=== PATIENT | female | born 1975 | race Caucasian/White ===

== ENCOUNTER 2016-11-06 09:53 | Emergency (ER) | payer OTHER ==
[~2016-11-06] VITALS: Ht 162.6 cm; Wt 70.9 kg
[~2016-11-06 09:53] MED LIST: ACET-1256 PO
[2016-11-06 10:03] VITALS: TEMP 36.5; Ht 162.6 cm; Wt 70.9 kg
[2016-11-06] MEDS ORDERED: OXYCODONE HCL IR 5 MG TAB (IMMEDIATE RELEASE) PO STA (11:15)
--- NOTE | 2016-11-06 11:20 | EMERGENCY ROOM VISIT NOTE ---
ED Visit Note First contact with patient: 10:34 CHIEF COMPLAINT: Low back pain HISTORY OF PRESENT ILLNESS: This 41-year-old female patient presents to the emergency department ambulatory complaining of pain in the low back which began 5 days ago. The pain was gradual in onset, is now constant and worse with movement. The patient notes the pain as sharp and a 6/10. The patient has taken Advil and muscle relaxer with no relief of the pain. The patient denies any bowel or bladder difficulties. There has been no leg numbness or weakness, and no change in sensation. She does report pain into the lateral aspect of the right leg that does not go past the knee. No nausea or vomiting or abdominal pain. No chest pain or shortness of breath. The patient has not had prior back injuries. REVIEW OF SYSTEMS: No dysuria or increased urinary frequency. A 10 system review of systems was completed and pertinent positives and negatives are in the HPI. ALLERGIES: Penicillin MEDICATIONS: None PMH: None SOCIAL HISTORY: The patient is a smoker. PHYSICAL EXAM: VITALS: Vitals are noted on the nurse's note and reviewed by myself. No abnormalities noted. GENERAL: This a 41-year-old female, in no acute distress, nondiaphoretic, well- developed well-nourished. SKIN: The skin was without rashes, erythema, edema, or bruising. Capillary refill less than 2 seconds. NECK: Supple without nuchal rigidity. No cervical spine tenderness. No paraspinous muscle tenderness. HEART: Regular rate and rhythm without murmurs gallops or rubs. LUNGS: Clear to auscultation bilaterally without wheezes, rales or rhonchi. MUSCULOSKELETAL: No muscle atrophy, erythema, or edema noted of the back. There is no tenderness over the lumbar spinous processes. There is no tenderness over the paraspinous muscles bilaterally. There is no tenderness over the thoracic spine or paraspinous muscles. There are no muscle spasms present. The patient is slow to move around with maximum tenderness with extension of the back. Negative straight leg raise test. NEURO: Patient was alert and oriented to person place and time. Normal sensation to light and sharp touch. Deep tendon reflexes 2+ in the lower extremities. Dorsalis pedis pulse 2+ bilaterally. Strength is 5/5 in the lower extremities bilaterally. EMERGENCY DEPARTMENT COURSE: The patient was seen and examined. Previous visits were reviewed. The patient does not have a fever. She is nontoxic in appearance. She does not have any acute neurologic deficit on exam or by history. An x-ray was obtained and shows some disc space narrowing. The patient was given prednisone and Percocet in the emergency department with improvement in her pain. She will be given a short course of both. She should contact orthopedics to schedule a follow-up appointment for further evaluation and management. She should return with worsening symptoms. DIFFERENTIAL DIAGNOSIS: Lumbar strain, degenerative disc disease, spondylolisthesis, herniated disc, spinal stenosis, osteoporosis, fracture, cauda equina syndrome, neoplasm, infection, inflammatory arthritis, among others. DISCHARGE INSTRUCTIONS AND TREATMENT: Rest off your feet for 1 to 2 days, ice for 24 hrs then heat to the low back. See your own doctor or an orthopedist in 5-7 days if you are not improving. Ibuprofen 600 mg every 6 hours if needed for the pain. Percocet 1-2 tablet every 4-6 hours as needed for worse pain. No driving or alcohol use with Percocet and do not take with Tylenol. Return if any problems with bowel or bladder function or if loss of sensation/movement of lower extremities. L-SPINE MIN 4 VIEWS ROUTINE CLINICAL HISTORY: Low back pain. COMPARISON: None FINDINGS: Alignment of the lumbar spine is anatomic. Vertebral body heights are maintained. There is no fracture or suspicious lesion. There is moderate disc space narrowing with osteophytosis at L5-S1. IMPRESSION: 1. No lumbar spine fracture or subluxation. 2. Moderate disc space narrowing with mild osteophytosis at L5-S1 Current/Historical Medications Scheduled Prednisone (Prednisone Tab), 0 PO DAILY Scheduled PRN Oxycodone/Acetaminophen 5MG/325MG (Percocet 5MG/325MG), 1-2 TABS PO Q6 PRN for Pain Allergies Coded Allergies: Penicillins (Verified Allergy, Mild, HIVES, 11/06/16) Vital Signs Date Time Temp Pulse Resp B/P Pulse Ox O2 Delivery O2 Flow Rate FiO2 11/06/16 11:59 51 16 113/63 98 Room Air 11/06/16 10:03 36.5 56 18 136/76 91 Room Air Medications Administered Medications (Trade) Dose Ordered Sig/Liliana Route Start Time Stop Time Status Last Admin Dose Admin Oxycodone HCl (Roxicodone Immediate Rel Tab) 5 mg NOW STAT PO 11/06/16 11:15 11/06/16 11:17 DC 11/06/16 11:29 5 MG Prednisone (PredniSONE TAB) 60 mg NOW STAT PO 11/06/16 11:15 11/06/16 11:17 DC 11/06/16 11:29 60 MG Departure Information Impression Primary Impression: Back pain with radiation Dispostion Home / Self-Care Condition GOOD Prescriptions Prednisone (Prednisone Tab) 20 Mg Tab 0 PO DAILY, #7 TAB 2 TABS DAILY FOR 2 DAYS, THEN 1 TAB DAILY FOR 2 DAYS, THEN 1/2 TAB DAILY FOR 2 DAYS. Prov: Polly Parnell PA-C 11/06/16 Oxycodone/Acetaminophen 5MG/325MG (PERCOCET 5MG/325MG) Tab 1-2 TABS PO Q6 Y for Pain, #24 TAB For Initial Treatment Prov: Polly Parnell PA-C 11/06/16 Referrals No Doctor, Assigned (PCP) Patient Instructions My [facility] Additional Instructions Rest off your feet for 1 to 2 days, ice for 24 hrs then heat to the low back. See your own doctor or an orthopedist in 5-7 days if you are not improving. Ibuprofen 600 mg every 6 hours if needed for the pain. Percocet 1-2 tablet every 4-6 hours as needed for worse pain. No driving or alcohol use with Percocet and do not take with Tylenol. Return if any problems with bowel or bladder function or if loss of sensation/movement of lower extremities.
[2016-11-06 11:59] VITALS: BP 113/63; PULSE 51; O2SAT 98
--- NOTE | 2016-11-06 11:59 | DIAGNOSTIC IMAGING REPORT ---
L-SPINE MIN 4 VIEWS ROUTINE CLINICAL HISTORY: Low back pain. COMPARISON: None FINDINGS: Alignment of the lumbar spine is anatomic. Vertebral body heights are maintained. There is no fracture or suspicious lesion. There is moderate disc space narrowing with osteophytosis at L5-S1. IMPRESSION: 1. No lumbar spine fracture or subluxation. 2. Moderate disc space narrowing with mild osteophytosis at L5-S1 Electronically signed by: Jonny Felipe M.D. 11/06/2016 11:58 AM Dictated Date/Time: 11/06/2016 11:57 AM
[2016-11-06] MEDS ORDERED: OXYC-57 PO (12:11)
[2016-11-06] MEDS ORDERED: PRED20TA2 PO (12:11)
== END 2016-11-06 12:24 | disposition home or self-care (01) ==
LOC: C.EDB 09:54
DX: M54.5 Low back pain (principal); F17.200 Nicotine dependence, unspecified, uncomplicated

== ENCOUNTER 2018-09-26 10:24 | Observation (INO) ==
--- NOTE | 2018-09-23 09:17 | Anesthesiology Consultation ---
Date of Service September 23, 2018 Assessment & Plan (1) Encounter for pre-operative examination: Plan: Will plan to draw CBC and T&S on the morning of surgery. Pending the lab results, patient is cleared for surgery. Chart Review Chart Review: Acceptable Risk for Surgery and Patient seen in Pre Admission Testing Consults Requested none Teaching & Discussion Pre-Anesthesia Teaching/Discussion Notes: Instructed NPO after midnight before surgery, except medications with 15 cc of water. Medication instructions provided according to the PAT guidelines. History Surgery Operation Date: 09/26/18 12:20 Proposed Procedures p Vaginal Suspension, Total Vaginal Hysterectomy, Bilateral Salpingectomy, Possible Laparoscopy, - Adan Brink MD s Possible Anterior Posterior Colporrhaphy, Cystoscopy - Adan Brink MD Height/Weight Height: 5 ft 5 in Weight: 71.6 kg Allergies Allergy/AdvReac Type Severity Reaction Status Date / Time Penicillins Allergy Mild HIVES Verified 09/23/18 08:50 Medications Home Medications Medication Instructions Recorded Confirmed Last Taken No Known Home Medications 09/23/18 09/23/18 Unknown Past Medical History Medical History Anxiety NO MEDICATIONS GERD (gastroesophageal reflux disease) OCCASIONALLY Past Family History Family History Other No pertinent family history Past Surgical History Surgical History History of bilateral tubal ligation Past Anesthesia History No Hx of Anesthesia Complications and No Family Hx of Anesthesia Complications History of PONV No Motion Sickness Screening History of Motion Sickness: No Social History Smoking Status: Current every day smoker tobacco type: cigarettes Smoking cigarettes per day: 15 CIGS/DAILY X 20 YEARS Do You Dip or Chew Tobacco: No Hx Alcohol Use: Yes Alcohol type: beer alcohol intake frequency: a few times a week Hx Substance Use: No substance use type: does not use Exercise / Class Metabolic Activity II 4-5 Yardwork/Stairs/Walk up hill (Walks alot. Works as a caregiver. Able to walk up [employer]. Denies CP or SOB. ) Review of Systems Patient denies chest pain, shortness of breath, dyspnea on exertion, cough, wheezing, palpitations. +joint pain (back) +acid reflux (doesn't take meds) Physical Exam Vital Signs BP: 126/78 P: 63 R: 16 T: 97.9 SPO2: 97% on RA ENMT Thyromental Distance: > or= 3.5 Finger Breadths (4) Mallampati Class: I Neck normal visual inspection; neck extension not limited Respiratory normal respiratory effort Auscultation: lungs clear to auscultation bilaterally Cardiovascular Rate/Rhythm: regular rate and regular rhythm Heart Sounds: no murmur Vessels: no carotid bruit Neurologic moves all extremities Psychiatric Orientation: alert and oriented x 3
[~2018-09-26 10:24] MED LIST changes: -ACET-1256 PO; +CEFAZOLIN 3000MG 65 ML IV SCH; +LACTATED RINGER'S 1,000 ML IV SCH; +LR 15ML/HR IV SCH
[2018-09-26] MEDS ORDERED: ePHEDrine sulfate 50 MG/ML AMP IV PRN (11:09)
[2018-09-26] MEDS ORDERED: ONDANSETRON INJ 2 MG/ML 2 ML VIAL IV PRN ×2 (11:09→14:50)
[2018-09-26] MEDS ORDERED: ATROPINE SULFATE 0.1 MG/ML 10ML SYR IV PRN (11:09)
[2018-09-26 11:14] LABS: Basophils # (auto) 0.04 K/uL (0-0.2); Basophils % (auto) 0.6 %; Eosinophils # (auto) 0.26 K/uL (0-0.5); Eosinophils % (auto) 3.9 %; Hematocrit (blood only) 35.1 % (37-47); Hemoglobin 10.7 g/dL (12.0-16.0); Immature Granulocytes # (auto) 0.01 K/uL (0.00-0.02); Immature Granulocytes % (auto) 0.2 %; Lymphocytes # (auto) 2.48 K/uL (1.2-3.4); Lymphocytes % (auto) 37.3 %; Mean Corpuscular Hgb Conc 30.5 g/dL (32-36); Mean Corpuscular Volume 75.5 fL (80-100); Mean Platelet Volume 9.4 fL (7.4-10.4); Monocytes # (auto) 0.61 K/uL (0.11-0.59); Monocytes % (auto) 9.2 %; Neutrophils # (auto) 3.25 K/uL (1.4-6.5); Neutrophils % (auto) 48.8 %; Platelet Count 385 K/uL (130-400); RDW Coefficient of Variation 19.1 % (11.5-14.5); RDW Standard Deviation 52.1 fL (36.4-46.3); Red Blood Count 4.65 M/uL (4.2-5.4); White Blood Count 6.65 K/uL (4.8-10.8)
[2018-09-26] MEDS ORDERED: PHENAZOPYRIDINE HCL 100 MG TAB PO STA (11:15)
--- NOTE | 2018-09-26 11:15 | History & Physical Bridge Note ---
Date of Service September 26, 2018 History & Physical Bridge Note I have examined the patient, reviewed the History & Physical and in the interval since the performance of the History & Physical I have noted the following changes of clinical significance: no changes noted
[2018-09-26] MEDS ORDERED: PHENAZOPYRIDINE HCL 100 MG TAB ONE (11:18)
[2018-09-26] MEDS ORDERED: CLINDAMYCIN 600 MG/54 ML D5W IV ONE (11:20)
[2018-09-26] MEDS ORDERED: [UNRECOGNIZED DRUG - OTHER] ONE (11:22)
[2018-09-26] MEDS ORDERED: BUPIVACAINE 0.5 % 5 MG/1 ML MPF 30ML VIAL ONE (11:22)
[2018-09-26] MEDS ORDERED: PREMARIN VAG CRM 14 APPLN/30 GM TUBE ONE (11:22)
[2018-09-26] MEDS ORDERED: MIDAZOLAM HCL 1 MG/ML 2ML VIAL ONE (11:24)
[2018-09-26] MEDS ORDERED: fentaNYL citrate 100 MCG/2 ML VIAL ONE (11:24)
[2018-09-26] MEDS ORDERED: GENTAMICIN CONSULT ACTIVE PRN (11:25)
[2018-09-26] MEDS ORDERED: GENTAMICIN SULFATE 100 MG in DEXTROSE 5% 100 ML IV STA (11:36)
[2018-09-26] MEDS ORDERED: DEXAMETHASONE SOD INJ 4 MG/ML VIAL ONE (12:24)
[2018-09-26] MEDS ORDERED: LIDOCAINE HCL 2% 2 ML VIAL/AMP(20MG/ML) INFIL ONE (12:24)
[2018-09-26] MEDS ORDERED: ROCURONIUM BROMIDE 10 MG/ML 5 ML VIAL ONE (12:24)
[2018-09-26] MEDS ORDERED: ONDANSETRON INJ 2 MG/ML 2 ML VIAL ONE (12:24)
[2018-09-26] MEDS ORDERED: GLYCOPYRROLATE 0.2 MG/ML VIAL ONE (12:24)
[2018-09-26] MEDS ORDERED: PROPOFOL IV EMULSION 10 MG/ML 20 ML VIAL IV ONE (12:24)
[2018-09-26] MEDS ORDERED: NEOSTIGMINE METHYLSULFATE 5 MG/5 ML SYR ONE (12:24)
[2018-09-26] MEDS ORDERED: HYDROmorphone INJ 2 MG/ML SYR/VIAL ONE (13:43)
[2018-09-26] MEDS ORDERED: KETOROLAC 30 MG/ML VIAL ONE (14:43)
[2018-09-26] MEDS ORDERED: ACETAMINOPHEN 325 MG TAB PO PRN (14:50)
[2018-09-26] MEDS ORDERED: PROMETHAZINE HCL 12.5 MG in SODIUM CHLORIDE 0.9% 50 ML IV PRN (14:50)
[2018-09-26] MEDS ORDERED: KETOROLAC 30 MG/ML VIAL IV PRN (14:50)
[2018-09-26] MEDS ORDERED: OXYCODONE/ACETAMINOPHEN 5mg/325mg TAB PO PRN (14:50)
--- NOTE | 2018-09-26 14:50 | Post Operative Brief Note ---
Immediate Post Op Note v1 Date of Surgery September 26, 2018 Pre & Post Diagnosis Operation Date: 09/26/18 12:00 Pre-Op Diagnosis: Menometrorrhagia, Uterine Prolapse Post-Op Diagnosis: Menometrorrhagia, Uterine Prolapse Procedure Operation Date: 09/26/18 12:00 Actual Procedures p Vaginal Suspension, Total Vaginal Hysterectomy, Bilateral Salpingectomy(Not Applicable) - Adan Brink MD s Possible Anterior Posterior Colporrhaphy, Cystoscopy - Adan Brink MD Complications: None Findings: 12 week size uterus, Fallopian tube and ovaries not well visualized but normal appearing as seen. Bilateral ureteral efflux and intact bladder on cystoscopy. Rectal exam at end of case showed no abnormalities. Surgeon Adan Brink MD [employer] OR Staff Estimated Blood Loss 50 Findings Consistent with Post-Op Diagnosis Drains Fernandez Catheter
[2018-09-26] MEDS: fentaNYL citrate 100 MCG/2 ML VIAL IV PRN ×4 (15:05→15:20)
[2018-09-26] MEDS ORDERED: HYDROmorphone INJ 1 MG/ML SYRINGE ONE (15:30)
[2018-09-26] MEDS ORDERED: HYDROmorphone INJ 0.5 MG/0.5 ML SYR IV PRN (15:31)
--- NOTE | 2018-09-26 15:44 | Anesthesiology Progress Note ---
Date of Service September 26, 2018 Anesthesia Post Procedure Vital Signs Vital Signs: Temp Pulse Pulse Pulse Resp BP BP 09/26/18 15:40 61 20 110/60 09/26/18 15:35 63 14 107/61 09/26/18 15:31 72 24 115/63 09/26/18 15:30 64 16 09/26/18 15:25 63 12 124/65 09/26/18 15:20 63 13 108/78 09/26/18 15:15 63 16 119/66 09/26/18 15:10 63 15 132/71 09/26/18 15:05 68 13 138/71 09/26/18 15:01 97.2 F L 72 74 16 125/64 09/26/18 10:52 98.2 F 66 20 131/73 BP Pulse Ox 09/26/18 15:40 100 09/26/18 15:35 100 09/26/18 15:31 100 09/26/18 15:30 100 09/26/18 15:25 100 09/26/18 15:20 100 09/26/18 15:15 100 09/26/18 15:10 100 09/26/18 15:05 100 09/26/18 15:01 125/64 100 09/26/18 10:52 95 Pain Intensity Abdomen: Pain Intensity: 6 Notes Mental Status: alert / awake / arousable and participated in evaluation Patient Amnestic to Procedure: Yes Nausea / Vomiting: adequately controlled Pain: adequately controlled Airway Patency, RR, SpO2: stable & adequate BP & HR: stable & adequate Hydration State: stable & adequate Anesthetic Complications: no major complications apparent and Pt Satisfied with anesthetic care
[2018-09-26] MEDS: OXYCODONE/ACETAMINOPHEN 5mg/325mg TAB PO PRN ×2 (18:07→21:38)
--- NOTE | 2018-09-26 20:11 | Operative Report ---
DATE OF OPERATION: 09/26/2018 PROCEDURE: Total vaginal hysterectomy, uterosacral ligament vaginal vault suspension, and a cystoscopy. PREOPERATIVE DIAGNOSES: 1. Dysfunctional uterine bleeding. 2. Menometrorrhagia. 3. Third-degree uterine prolapse. POSTOPERATIVE DIAGNOSES: 1. Dysfunctional uterine bleeding. 2. Menometrorrhagia. 3. Third-degree uterine prolapse. 4. Status post procedure. SURGEON: Adan Brink MD ASSISTANTS: OR staff. ESTIMATED BLOOD LOSS: 100 mL DRAINS: Fernandez. FLUIDS: Continuous lactated ringer. URINE OUTPUT: 150 mL via Fernandez. COMPLICATIONS: None. FINDINGS: There was noted to be a normal-appearing vulva and vagina. There was noted to be prolapse of the cervix approximately 2 cm past the vaginal introitus. There was noted to be an elongated cervix measuring greater than 7 cm. There was noted to be an enlarged uterus approximately 12-week size. There was bilateral ureteral efflux and intact bladder on cystoscopy at the completion of the case. There was also a rectal exam to evaluate for injury. There was noted to be intact rectal mucosa without signs of any disruption. INDICATIONS: Ms. Frances is a 43-year-old with a long history of menometrorrhagia. She reports that she has had heavy bleeding saturate, which typically lasts 5 days. She typically wears pads plus liners and typically has overflow bleeding throughout her cycle. She tried hormone regulation of her menses without any significant improvements. In addition, the patient has noted to have a third-degree uterine prolapse with the cervix protruding approximately 2-3 cm just past the hymenal ring. Management options for the heavy bleeding and uterine prolapse were discussed in clinic and the patient opted to proceed with total vaginal hysterectomy with uterosacral ligament vaginal vault suspension and cystoscopy. Consents were reviewed and signed in clinic. DESCRIPTION OF PROCEDURE: The patient was taken to the operating room after consents were ensured. Upon presentation, she was properly identified. General endotracheal anesthesia was obtained without difficulty. The patient was then placed in dorsal lithotomy position and was prepped and draped in the normal sterile fashion. A preprocedural timeout was then performed. A Fernandez was then placed in for bladder drainage. A weighted speculum was then placed in the vagina and the cervix was easily visualized as it was at the level of the introitus. The cervix was grasped with single tooth tenaculum x2. The colpotomy was then made on the anterior aspect of the cervix starting from the 9 o'clock position to the 3 o'clock position. The anterior colpotomy was then gently dissected off of the cervix to the level with both Metzenbaum scissors and blunt dissection until the parietal peritoneum was identified. The peritoneum was then grasped with pickups and was entered with Metzenbaum scissors. The right angle retractor was then placed within the abdomen. The posterior colpotomy was then made connecting the 3 o'clock to the 9 o'clock position posteriorly. The colpotomy was dissected off up to the level of the lower uterine segment, at which time the posterior peritoneum was identified and grasped with pickups and incised to achieve entry into the posterior cul-de-sac, the right angle retractor was then placed in the posterior cul-de-sac. The bladder pedicle was then dissected with the Anyi clamps. A Anyi was placed and the bladder pedicle was dissected. The uterosacral ligaments were then grasped with Anyi clamps dissected off the cervix and suture ligated with tags placed on each 4 suspensions of the uterosacral ligaments at the completion of the case. The uterine vessels were then identified bilaterally. Anyi clamps were placed on the right uterine vessels. They were then dissected and suture ligated. This was performed on the left side. The broad ligament was then serially dissected with Anyi clamps sharp dissection and a suture ligation after approximating the level of the uteroovarian ligaments bilaterally. The uterus was noted to be too large for good visualization and decision was made to bivalve the uterus. The right portion of the half of the uterus and a uteroovarian ligament on the left side was then grasped with the Anyi clamps. Care was made to ensure that the IP ligament was left intact and that there was no bowel within the clamps. The Johnson scissor was then used to dissect the right aspect of the uterus from the uteroovarian ligament, freeing the right half of the uterus. The uteroovarian ligament was then ligated with suture. The left upper half of the uterus was then brought back down through the colpotomy. The left uteroovarian ligament was then grasped with Anyi clamps and dissected from the uterus, freeing the left portion of the uterus and cervix. The left uteroovarian ligament was then suture ligated and tags were placed on both uteroovarian ligaments for later evaluation. Evaluation for the fallopian tubes were then performed; however, it was felt that these were too high in the maternal abdomen for safe dissection. Therefore, they were left intact. ovaries were not well visualized but appeared normal as seen. All pedicles were then inspected, starting with the right uteroovarian continuing down towards the right uterine vessels. After hemostasis was ensured, these sutures were then cut leaving the uterosacral ligament suture intact. This was once again performed on the left portion of the left vascular pedicles evaluating from the left uterine vessels upwards towards the left uteroovarian pedicles. Hemostasis was noted. Attention was then turned to closure of the posterior cul-de-sac and posterior vaginal cuff deep posterior peritoneum was identified and was sutured and placed to the posterior vaginal cuff continued from the just inferior to the right uterosacral ligament in continuous running locked suture towards the left aspect of the uterosacral ligament. The vaginal cuff was then closed with 0 Vicryl in continuous running locked suture. The uterosacral ligament vaginal vault suspension was then performed with care to suspend the apex of the vagina as far apically as possible. The vaginal cuff was noted to be approximately 5-6 cm above the hymenal ring There was noted to be no anterior or posterior prolapse and therefore the anterior, posterior repairs were not performed. A cystoscopy was then performed. There was noted to be an intact bladder with bilateral ureteral efflux. A gentle rectal exam was performed and there was noted to be intact rectal mucosa without signs of disruption. Needle, sponge, and instrument counts were correct at the completion of the case. The patient was awoken from anesthesia and taken to recovery room in stable condition. I attest to the content of the Intraoperative Record and any orders documented therein. Any exceptions are noted below. KEMARD
[2018-09-26] MEDS ORDERED: DOCUSATE SODIUM 100 MG CAP PO SCH (21:00)
[2018-09-26] MEDS: IBUPROFEN 600 MG TAB PO PRN (21:38)
[2018-09-27] MEDS: IBUPROFEN 600 MG TAB PO PRN ×2 (02:02→08:04)
[2018-09-27] MEDS: OXYCODONE/ACETAMINOPHEN 5mg/325mg TAB PO PRN ×2 (02:03→08:08)
[2018-09-27] MEDS ORDERED: CLINDAMYCIN 600 MG/54 ML BAG IV SCH (06:00)
[2018-09-27 07:49] LABS: Basophils # (auto) 0.02 K/uL (0-0.2); Basophils % (auto) 0.1 %; Eosinophils # (auto) 0.01 K/uL (0-0.5); Eosinophils % (auto) 0.1 %; Hematocrit (blood only) 28.2 % (37-47); Hemoglobin 8.5 g/dL (12.0-16.0); Immature Granulocytes # (auto) 0.02 K/uL (0.00-0.02); Immature Granulocytes % (auto) 0.1 %; Lymphocytes # (auto) 2.03 K/uL (1.2-3.4); Mean Corpuscular Hgb Conc 30.1 g/dL (32-36); Mean Corpuscular Volume 75.2 fL (80-100); Mean Platelet Volume 9.5 fL (7.4-10.4); Monocytes # (auto) 1.34 K/uL (0.11-0.59); Monocytes % (auto) 8.6 %; Neutrophils # (auto) 12.25 K/uL (1.4-6.5); Neutrophils % (auto) 78.1 %; Platelet Count 328 K/uL (130-400); RDW Coefficient of Variation 19.1 % (11.5-14.5); RDW Standard Deviation 51.3 fL (36.4-46.3); Red Blood Count 3.75 M/uL (4.2-5.4); White Blood Count 15.67 K/uL (4.8-10.8)
--- NOTE | 2018-09-27 08:13 | Gynecologic Progress Note ---
Date of Service September 27, 2018 Assessment & Plan (1) Encounter for pre-operative examination: Post op day 1 from [facility]. Recovering well and stable for discharge Subjective Patient doing well. Reports cramping pain. Otherwise recovering well. Ambulating , voiding, tolerating diet, no VB Physical Exam 2 Vital Signs (Past 24 Hours): Last Vital Signs Temp 36.7 C 09/27/18 04:45 Pulse 78 09/27/18 04:45 Resp 16 09/27/18 04:45 BP 114/67 09/27/18 04:45 Pulse Ox 97 09/27/18 04:45 Gastrointestinal (Abdomen): Percussion/Palpation: abdomen soft; abdomen nontender, no guarding and abdomen not rigid
[2018-09-27 08:17] LABS: Anisocytosis Present; Hypochromasia Present
--- NOTE | 2018-10-03 17:32 | Discharge Summary ---
PROCEDURES DURING ADMISSION: Total vaginal hysterectomy, uterosacral ligament vaginal vault suspension, and cystoscopy. HOSPITAL COURSE: The patient presented for the above-mentioned procedures. The procedures were without complication. The patient was admitted for observation following the procedures. She was noted to have issues with urinary retention initially, which resolved by the morning on 09/27/2018, and patient was stable for discharge at that time. No additional complications occurred. Otherwise, patient was discharged in excellent condition. She is scheduled for 2-3 week postoperative visit to review pathology and then will follow up for a cuff check in approximately 6-8 weeks following the initial procedures.
== END 2018-09-27 08:55 | disposition home or self-care (01) ==
LOC: ASU 10:24 → 4N 10:24